=== PATIENT | female | born 1995 | race American Indian/Alaskan Native ===

== ENCOUNTER 2020-08-16 21:36 | Emergency (ER) | payer OTHER ==
[2020-08-16 21:58] VITALS: BP 121/80
[2020-08-16] MEDS ORDERED: ACETAMINOPHEN 325 MG TAB PO ONE (22:01)
[2020-08-16] MEDS ORDERED: IBUPROFEN 600 MG TAB PO ONE (22:01)
[2020-08-16] MEDS ORDERED: CYCLOBENZAPRINE 10 MG TAB PO ONE (22:02)
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
== END 2020-08-17 00:18 | disposition home or self-care (01) ==
LOC: ED 21:36
DX: M54.42 Lumbago with sciatica, left side (principal); M54.41 Lumbago with sciatica, right side; M62.830 Muscle spasm of back; Z79.1 Long term (current) use of non-steroidal anti-inflammatories (NSAID); Z79.899 Other long term (current) drug therapy; V49.49XA Driver injured in collision with other motor vehicles in traffic accident, initial encounter; Y93.89 Activity, other specified; Y92.410 Unspecified street and highway as the place of occurrence of the external cause; Y99.8 Other external cause status
CPT/HCPCS: 72100; 72125